=== PATIENT | male | born 1960 | race Caucasian/White ===

== ENCOUNTER 2017-09-06 19:13 | Emergency (ER) | payer OTHER ==
[2017-09-06] MEDS ORDERED: Oseltamivir 75 MG CAP ONE (20:44)
--- NOTE | 2017-09-06 23:32 | RAD ---
CHEST TWO VIEWS: 09/06/2017 COMPARISON: No prior films available for comparison. FINDINGS: The heart is normal in size. There are no clear findings of pneumonia. The lungs seem clear, thoug h there might be a little bit of lingular scarring. There are no effusions. The mediastinum appear s normal, and the trachea is midline. Minor degenerative changes are seen in the spine. IMPRESSION: No acute thoracic findings. POS: HOME
== END 2017-09-06 20:48 | disposition home or self-care (01) ==
LOC: BURERS 19:13
DX: J11.1 Influenza due to unidentified influenza virus with other respiratory manifestations (principal)
CPT/HCPCS: 71020